=== PATIENT | male | born 1990 | race Caucasian/White ===

== ENCOUNTER 2020-03-07 14:24 | Outpatient (REF) | payer MEDICAID, SELFPAY | END 2020-03-07 14:25 | disposition home or self-care (01) | LOC: HO.LAB 14:24 | PROVIDERS: Visit Provider Internal Medicine | DX: Z20.828 Contact with and (suspected) exposure to other viral communicable diseases (principal) | CPT/HCPCS: C9803; U0003 ==

== ENCOUNTER 2020-03-21 17:54 | Outpatient (REF) | payer MEDICAID, SELFPAY | END 2020-03-21 17:55 | disposition home or self-care (01) | LOC: HO.LAB 17:54 | PROVIDERS: Visit Provider Internal Medicine | DX: Z20.828 Contact with and (suspected) exposure to other viral communicable diseases (principal) | CPT/HCPCS: C9803; U0003 ==

== ENCOUNTER 2020-09-23 10:57 | Outpatient (REF) | payer MEDICAID, SELFPAY ==
[2020-09-23 11:26] LABS: COVID-19 Test Negative (Negative)
== END 2020-09-23 10:58 | disposition home or self-care (01) ==
LOC: HO.LAB 10:57
PROVIDERS: Visit Provider Internal Medicine
DX: Z20.822 Contact with and (suspected) exposure to COVID-19 (principal)
CPT/HCPCS: 36415; 87635; C9803

== ENCOUNTER 2021-02-03 20:06 | Emergency (ER) | payer MEDICAID, SELFPAY ==
[2021-02-03 21:23] LABS: COVID-19 Test Negative (Negative)
[2021-02-03 21:33] VITALS: BP 164/107; PULSE 77; RESP 16; TEMP 36.7; O2SAT 98; BMI 39.5
--- NOTE | 2021-02-03 23:49 | ED_ITS ---
HPI - URI/Sore Throat General Chief Complaint: Upper Respiratory Symptoms Stated Complaint: cough,runny nose, fever Time Seen by Provider: 02/03/21 23:39 Source: patient Mode of arrival: ambulatory Limitations: no limitations History of Present Illness HPI Narrative: Patient presents to ED for cough, runny nose, and fever since last night. Patient is fully vaccinated against COVID. Patient denies any chest pain or shortness of breath. MD elicited complaint: fever, cough and nasal congestion Related Data Previous Rx's Medication Instructions Recorded benzonatate 100 mg capsule 100 mg PO TID PRN 5 Days #15 cap 02/04/21 (Tessalon Perlbijal) Allergies Allergy/AdvReac Type Severity Reaction Status Date / Time penicillin G [PENICILLIN G] Allergy Unknown rash Unverified 01/17/20 16:23 penicillin V Allergy Unknown rash Verified 03/19/13 00:00 Review of Systems Review of Systems: Yes all other systems are reviewed and are negative Constitutional: Constitutional: Reports as per HPI, Reports no additional constitutional complaints, Reports fever(s) and Reports headache(s) Eyes: Eyes: Reports as per HPI and Reports no additional eye complaints ENT: Reports system reviewed and no additional complaints, except as documented, Reports as per HPI and Reports headache(s) Cardiovascular: Cardiovascular: Reports as per HPI, Reports no additional cardiovascular complaints, Denies chest pain and Denies dyspnea Respiratory: Respiratory: Reports as per HPI, Reports no additional respiratory complaints, Reports cough and Denies dyspnea Gastrointestinal: Gastrointestinal: Reports as per HPI and Reports no additional gastrointestinal complaints Musculoskeletal: Musculoskeletal: Reports no additional musculoskeletal complaints and Reports as per HPI Neurologic: Reports system reviewed and no additional complaints, except as d ocumented, Reports as per HPI and Reports headache(s) Psychiatric: Psychiatric: Reports no additional psychiatric complaints and Reports as per HPI [facility] Past Medical History Medical History (Updated 02/04/21 @ 00:02 by Background Dascott) No known health problems Social History Social History Advance Directives: No Advance Directives Information Provided: No Physical Exam Vital Signs: Vital Signs: Last Vital Signs Temp 98.1 F 02/03/21 21:33 Pulse 77 02/03/21 21:33 Resp 16 02/03/21 21:33 BP 164/107 H 02/03/21 21:33 Pulse Ox 98 02/03/21 21:33 Body Mass Index 39.5 Const: General: cooperative, healthy appearing and comfortable Orientation/consciousness: patient oriented x3 HENMT: Head: Yes normal to inspection, Yes No palpable skull fracture present, Yes normocephalic, Yes atraumatic and No abrasion Ears: hearing grossly normal bilaterally, external ears normal, TM's normal bilaterally, EAC's normal, mastoids normal and no periauricular adenopathy Throat: Yes posterior oropharynx normal, Yes tonsils normal and Yes uvula midline Eyes: General: appearance normal, both eyes and all related structures Neck: Neck: Yes normal visual inspection, Yes full ROM, Yes no lymphade nopathy, Yes no meningeal signs, Yes trachea midline, Yes supple and No tender Chest: Chest palpation & inspection: normal inspection of the chest and normal palpation of entire chest wall Resp: Effort & Inspection: normal respiratory effort and able to speak in complete sentences Auscultation: clear to auscultation bilaterally Cardio: Jugular venous distension: no JVD Heart sounds: S1 normal heart sound present and S2 normal heart sound present GI: Inspection: Yes normal to inspection and No abdominal wall ecchymosis Palpation (GI): Soft to palpation, not firm, nontender, no guarding and not rigid : General: No CVA tenderness and Yes no CVA tenderness Back/Spine/Pelvis: Back: no CVA tenderness, No CVA tenderness and No back tenderness Skin: General skin exam: no rashes or lesions noted and elasticity normal Neuro: General: patient oriented x3, gait normal, no meningeal signs and CN's II-XI intact bilaterally Cranial nerves: Yes CN's II-XII intact bilaterally Extrem: General: Yes normal to inspection and Yes full ROM Psych: Appearance: grossly normal, well kempt and not disheveled MDM - URI/Sore Throat Lab Data Labs: Lab Results 02/03/21 Range/Units 20:43 COVID-19 (MARY JO) Negative (Negative) COVID-19 Clin Com See Note Discharge Plan Discharge Clinical Impression: Upper respiratory infection Patient Disposition: Home, Self-Care Instructions: Upper Respiratory Infection (ED) Additional Instructions: Return to the ED for chest pain, shortness of breath, swelling of lower extremities, coughing up blood, weakness, dizziness, or any other concerning symptoms. Prescriptions: New benzonatate [Tessalon Perles] 100 mg capsule 100 mg PO TID PRN (Reason: cough) 5 Days Qty: 15 RF: 0 Stand Alone Forms: Work/School Release Interventions: ED Discharge Assessment Last Done: 02/04/21 00:17 Discharge Date/Time: 02/04/21 00:19 Print Language: Frisian
== END 2021-02-04 00:19 | disposition home or self-care (01) ==
LOC: HO.ED 02-04 00:05
PROVIDERS: Emergency Provider Internal Medicine
DX: J06.9 Acute upper respiratory infection, unspecified (principal); Z20.822 Contact with and (suspected) exposure to COVID-19
CPT/HCPCS: 36415; 87635; 99283

== ENCOUNTER 2021-04-20 08:50 | Emergency (ER) | payer OTHER, SELFPAY ==
[2021-04-20 09:06] VITALS: BP 156/105; PULSE 76; RESP 18; TEMP 36.6; O2SAT 99; BMI 38.4
--- NOTE | 2021-04-20 10:49 | ED.GENADULT ---
HPI - General Adult General Chief complaint: Skin/Abscess/Foreign Body Stated complaint: HAND LACERATION AT WORK Time Seen by Provider: 04/20/21 11:47 Source: patient Mode of arrival: ambulatory Limitations: no limitations History of Present Illness HPI narrative: 30-year-old male with no past medical history presents to the ED with laceration on posterior right thumb by steam box hand at work. Patient states mild bleeding. Complete range of motion of thumb and denies any numbness/tingling. Related Data Previous Rx's Medication Instructions Recorded benzonatate 100 mg capsule 100 mg PO TID PRN 5 Days #15 cap 02/04/21 (Tessalon Perles) clindamycin HCl 300 mg capsule 300 mg PO TID 7 Days #21 cap 04/20/21 Allergies Allergy/AdvReac Type Severity Reaction Status Date / Time penicillin G [PENICILLIN G] Allergy Unknown rash Unverified 01/17/20 16:23 penicillin V Allergy Unknown rash Verified 03/19/13 00:00 Review of Systems Review of Systems: Yes all other systems are reviewed and are negative Constitutional: Constitutional: Reports as per HPI and Reports no additional constitutional complaints Eyes: Eyes: Reports as per HPI and Reports no additional eye complaints Cardiovascular: Cardiovascular: Reports as per HPI and Reports no additional cardiovascular complaints Respiratory: Respiratory: Reports as per HPI and Reports no additional respiratory complaints Gastrointestinal: Gastrointestinal: Reports as per HPI and Reports no additional gastrointestinal complaints Genitourinary: Genitourinary: Reports no additional male genitourinary complaints and Reports as per HPI Musculoskeletal: Musculoskeletal: Reports no additional musculoskeletal complaints and Reports as per HPI Comments: Right thumb laceration Neurologic: Reports system reviewed and no additional complaints, except as documented and Reports as per HPI Psychiatric: Psychiatric: Reports no additional psychiatric complaints and Reports as per HPI Endocrine: Endocrine: Reports no additional endocrine complaints and Reports as per HPI [facility] Past Medical History Medical History (Updated 04/20/21 @ 11:39 by ROSE Garsia) No known health problems Social History Social History Advance Directives: No Advance Directives Information Provided: Yes Physical Exam Vital Signs: Vital Signs: Last Vital Signs Temp 97.8 F 04/20/21 09:06 Pulse 76 04/20/21 09:06 Resp 18 04/20/21 09:06 BP 156/105 H 04/20/21 09:06 Pulse Ox 99 04/20/21 09:06 BMI result Body Mass Index 38.4 Const: General: cooperative, healthy appearing, comfortable, no acute distress, well developed, alert, awake and Physically active Orientation/consciousness: oriented to person, oriented to place, oriented to time and patient oriented x3 HENMT: Head: Yes normal to inspection, Yes No palpable skull fracture present, Yes normocephalic, Yes atraumatic and No abrasion Eyes: General: appearance normal, both eyes and all related structures Neck: Neck: Yes normal visual inspection, Yes full ROM, Yes no lymphadenopathy, Yes no meningeal signs, Yes trachea midline, Yes supple, No anterior neck swelling and No tender Chest: Chest palpation & inspection: normal inspection of the chest and normal palpation of entire chest wall Resp: Effort & Inspection: normal respiratory effort and able to speak in complete sentences Auscultation: clear to auscultation bilaterally Cardio: Jugular venous distension: no JVD Heart sounds: S1 normal heart sound present and S2 normal heart sound present GI: Inspection: Yes normal to inspection and No abdominal wall ecchymosis Palpation (GI): Soft to palpation, not firm, nontender, no guarding and not rigid : General: No CVA tenderness and Yes no CVA tenderness Back/Spine/Pelvis: Back: no CVA tenderness, No CVA tenderness and No back tenderness Skin: General skin exam: no rashes or lesions noted and elasticity normal Neuro: General: oriented to person, oriented to place, oriented to time, patient oriented x3, gait normal, tone normal, moves all extremities, Normal light touch and pain sensation, no meningeal signs, no focal motor deficits, CN's II-XI intact bilaterally and normal sensation to monofilament Extrem: General: Yes normal to inspection and Yes full ROM Hand/finger images: 1. Very superficial thumb laceration negative for active bleeding. Patient has complete range of motion of thumb. Capillary refill is intact. Negative for signs for any nerve damage or tendon injury. Rest of hand normal negative for signs of trauma. Motor/neuro/vascular exam of upper extremity intact Psych: Appearance: grossly normal, well kempt and not disheveled Course Course Course Narrative: Laceration to right hand. Reevaluation(s) Reevaluation #1: No laceration repair indicated. Will repaired with Dermabond. Tdap ordered. Time: 10:56 Reevaluation #2: Dermabone placed on wound. Patient will be discharged with Keflex and follow-up with her connection Time: 11:37 Medical Decision Making MDM Narrative Medical decision making narrative: Laceration Discharge Plan Discharge Clinical Impression: Laceration of thumb Patient Disposition: Home, Self-Care Instructions: Finger Laceration (ED), Skin Adhesive Care (ED), Steristrips (ED) Additional Instructions: Return to the ED immediately for any swelling, redness, pus discharge, foul odor, bluish black discoloration, hotness, coolness, fever, chills, or any other concerning symptoms. Please follow-up with connection. You will be discharged with antibiotics to prevent infection. Laceration should be kept dry for at least the 1st 24 hours. Prescriptions: New clindamycin HCl 300 mg capsule 300 mg PO TID 7 Days Qty: 21 RF: 0 No Action benzonatate [Tessalon Perles] 100 mg capsule 100 mg PO TID PRN (Reason: cough) 5 Days Qty: 15 RF: 0 Referrals: Work [facility] [Outside] - 2 days (Right thumb laceration at work) Interventions: ED Discharge Assessment Last Done: 04/20/21 12:12 Discharge Date/Time: 04/20/21 12:13 Print Language: Jordanian
[2021-04-20] MEDS: Diphth,Pertus(ACell),Tet Adult 0.5 ML SYRINGE IM (12:04)
== END 2021-04-20 12:13 | disposition home or self-care (01) ==
PROVIDERS: Emergency Provider Emergency Medicine
DX: S61.011A Laceration without foreign body of right thumb without damage to nail, initial encounter (principal); W27.8XXA Contact with other nonpowered hand tool, initial encounter; Y93.89 Activity, other specified; Y92.531 Health care provider office as the place of occurrence of the external cause; Y99.0 Civilian activity done for income or pay
CPT/HCPCS: 12001; 90471; 90715; 99283; 99284

== ENCOUNTER 2024-10-09 13:43 | Emergency (ER) | payer SELFPAY ==
--- NOTE | ~2024-10-09 | XR_ITS ---
EXAMINATION: XR LUMBOSACRAL SPINE CLINICAL INFORMATION: low back pain. heard a pop COMPARISON: None available. TECHNIQUE: Three views of the lumbosacral spine. FINDINGS: SI joints are symmetrical and unremarkable. There are 5 nonrib-bearing lumbar segments. T11-12 and T12-L1 demonstrate mild disc space narrowing and small endplate osteophytes. L5-S1 demonstrates minimal grade 1 retrolisthesis. XR/XR lumbar spine 2-3V IMPRESSION: T11-12 and T12-L1 mild degenerative disc disease. Minimal grade 1 retrolisthesis at L5-S1. Electronically signed by: Alexander Nunez MD 10/09/2024 02:20 PM EDT
[2024-10-09 13:55] VITALS: BP 154/97; PULSE 83; RESP 18; TEMP 36.8; O2SAT 97; BMI 40.3
--- NOTE | 2024-10-09 13:56 | ED.GENADULT ---
HPI - General Adult General Chief complaint: Back Pain/Injury Stated complaint: Lower back pain Time Seen by Provider: 10/09/24 13:59 Source: patient Mode of arrival: ambulatory Limitations: no limitations History of Present Illness ED Provider: dana Adkins HPI narrative: 33-year-old male presents to ED for low back pain after bending down at work . Patient was speaking heavy object and felt a pop in his lower back. Patient denies any urinary/bowel incontinence, fever, chills, nausea, vomiting, or any recent IV drug use. Patient denies any abdominal pain, dysuria, hematuria, flank pain, or genitourinary symptoms. Related Data Previous Rx's ?Medication ?Instructions ?Recorded benzonatate 100 mg capsule 100 mg PO TID PRN cough 5 days #15 02/04/21 (Arlette Alston) caps clindamycin HCl 300 mg capsule 300 mg PO TID 7 days #21 caps 04/20/21 cyclobenzaprine 10 mg tablet 10 mg PO TID PRN muscle spasm #15 10/09/24 tabs naproxen 500 mg tablet 500 mg PO BID PRN pain #14 tabs 10/09/24 Allergies Allergy/AdvReac Type Severity Reaction Status Date / Time penicillin G [PENICILLIN G] Allergy Unknown rash Unverified 10/09/24 13:57 penicillin V Allergy Unknown rash Verified 10/09/24 13:57 Review of Systems Review of Systems: Low back pain Yes all other systems are reviewed and are negative [facility] Past Medical History Medical History (Updated 10/09/24 @ 14:53 by ROSE Garsia) No known health problems Social History Social History Advance Directives: No Advance Directives Information Provided: No Physical Exam ED Vital Signs: Vital Signs - 24 hr 10/09/24 13:55 10/09/24 15:08 Temperature 98.2 F 98.2 F Pulse Rate 83 83 Respiratory Rate 18 18 Blood Pressure 154/97 H 154/97 H Pulse Oximetry 97 97 Oxygen Delivery Method Room Air Room Air BMI result Body Mass Index 40.3 Const General: cooperative, healthy appearing, comfortable, no acute distress, well developed, alert, awake and Physically active Orientation/consciousness: patient oriented x3 HENMT Head: Yes normal to inspection, Yes No palpable skull fracture present, Yes normocephalic and Yes atraumatic Eyes General: appearance normal, both eyes and all related structures Neck Neck: Yes normal visual inspection, Yes full ROM, Yes no lymphadenopathy, Yes no meningeal signs, Yes trachea midline, Yes supple, No anterior neck swelling and No tender Chest Chest palpation & inspection: normal inspection of the chest and normal palpation of entire chest wall Resp Effort & Inspection: normal respiratory effort and able to speak in complete sentences Auscultation: clear to auscultation bilaterally Cardio Jugular venous distension: no JVD Heart sounds: S1 normal heart sound present and S2 normal heart sound present GI Inspection: Yes normal to inspection Palpation (GI): Tenderness to palpation present (GI) in the LLQ, no guarding and not rigid General: Yes no CVA tenderness Back/Spine/Pelvis Back: no CVA tenderness and back tenderness (lumbar) Skin General skin exam: no rashes or lesions noted, elasticity normal and turgor normal Neuro General: patient oriented x3, gait normal, tone normal, moves all extremities, Normal light touch and pain sensation, no meningeal signs, no focal motor deficits, CN's II-XI intact bilaterally and normal sensation to monofilament Extrem General: Yes normal to inspection, Yes full ROM and Yes capillary refill normal Psych Appearance: grossly normal, well kempt and not disheveled Course Course Course Narrative: RME: 33 year male presents to ED for low back pain after heavy lifting at work. Patient denies any abdominal pain nausea vomiting, dysuria, hematuria flank pain fever or chills. X-ray ordered. Medical Decision Making Medical Decision Making MDM Narrative: 33-year-old male presents to ED for low back pain worse on movement after lifting heavy object at work and hearing a pop. X-ray does show arthritis no fracture. Not suspecting epidural abscess, cauda equinus syndrome, osteomyelitis, or any other life-threatening etiology. Patient informed to follow up with work clinic. Patient will be discharged with NSAIDs and muscle relaxer. Patient explained worrisome signs and informed her to the ED immediately. Differential Diagnosis Differential Diagnoses: The differential diagnosis associated with the presentation includes (Fracture, back sprain, dislocation) Admission/Observation Consideration of admission/observation: Escalation of care including admission/observation considered Independent Interpretation I performed an independent interpretation of an: Plain X-Ray Radiology Impression Discussion of test interpretation with radiology: I have reviewed the radiologist's reading. Independent Historian Clinical information obtained from an independent historian. History obtained from or confirmed by: Other (patient) Prescription Management I considered prescription management with: Pain Medication Discharge Plan Discharge Clinical Impression: Lumbar radiculopathy, Degenerative disc disease, thoracic Patient Disposition: Home, Self-Care Instructions: Lumbar Radiculopathy (ED), Degenerative Disc Disease (ED) Additional Instructions: Recommend follow-up with work connection. Return to the ED for worsening back pain, abdominal pain, nausea, vomiting, flank pain, hematuria, dysuria, inability to walk, numbness/tingling of lower extremities, or any other concerning symptoms. EXAMINATION: XR LUMBOSACRAL SPINE CLINICAL INFORMATION: low back pain. heard a pop COMPARISON: None available. TECHNIQUE: Three views of the lumbosacral spine. FINDINGS: SI joints are symmetrical and unremarkable. There are 5 nonrib-bearing lumbar segments. T11-12 and T12-L1 demonstrate mild disc space narrowing and small endplate osteophytes. L5-S1 demonstrates minimal grade 1 retrolisthesis. XR/XR lumbar spine 2-3V IMPRESSION: T11-12 and T12-L1 mild degenerative disc disease. Minimal grade 1 retrolisthesis at L5-S1. Electronically signed by: Alexander Nunez MD 10/09/2024 02:20 PM EDT RP Dictated By: Alexander Nunez MD Signed By: <Electronically signed by Alexander Nunez MD in OV> 10/09/24 1420 Prescriptions: New naproxen 500 mg tablet 500 mg PO BID PRN (Reason: pain) Qty: 14 0RF cyclobenzaprine 10 mg tablet 10 mg PO TID PRN (Reason: muscle spasm) Qty: 15 0RF Rx Instructions: side effect is drowsiness. Do not take at work or while driving. No Action benzonatate [Tessalon Perles] 100 mg capsule 100 mg PO TID PRN (Reason: cough) 5 Days Qty: 15 0RF clindamycin HCl 300 mg capsule 300 mg PO TID 7 Days Qty: 21 0RF Referrals: [facility] [Outside] (Pulled back at work) Stand Alone Forms: Work/School Release Interventions: ED Discharge Assessment Last Done: 10/09/24 15:08 Discharge Date/Time: 10/09/24 15:09 Print Language: Lithuanian
[2024-10-09 15:08] VITALS: BP 154/97; PULSE 83; RESP 18; TEMP 36.8; O2SAT 97
--- OUTSIDE RECORDS SUMMARY | 2024-10-09 18:04 | XMS_ITS | Clinical Summary ---
Author Organization [email or web address] Address [address] [place] [address] Care Team Providers Care Law Firm Receptionist Name Role Phone Unavailable Primary Care Provider Unavailabl e Encounters Date Type Department Care Team Description 07/13/2024 Population Health Risk Score [facility] (C3) Department [address] [id number] Provider, Population Health Generic from Last 3 Months Social History Tobacco Use Types Packs/Day Years Used Date Smoking Tobacco: Never Assessed Sex and Gender Information Value Date Recorded Sex Assigned at Not on file Legal Sex Male 1:42 PM EST Gender Identity Not on file Sexual Orientation Not on file Plan of Treatment Health Maintenance Due Date Last Done Comments Depression Screening 1992 HIV Screening 1992 SDOH Screening 1992 Disability Screening 1992 Alcohol/Substance Use Screening 2004 Tobacco Screening 2004 Family Planning (PISQ) 10/26/2007 Hepatitis C Screening 2010 DTaP/Tdap/Td Vaccines (1 - Tdap) 10/26/2011 Hepatitis B Vaccines (1 of 3 - 19+ 3-dose series) 10/26/2011 COVID-19 Vaccine ( - 2023-2 5 season) 2024 Influenza Vaccine (Season Ended) 2024 Zoster Vaccines (1 of 2) 2042 RSV Patients and Pa tients Aged 60 years or older (1 - 1-dose 75+ series) 10/26/2067 HIB Vaccines Aged Out No longer eligi ble based on patient's age to complete this topic HPV Vaccines Aged Out No longer eligi ble based on patient's age to complete this topic Hepatitis A Vaccines Aged Out No long er eligible based on patient's age to complete this topic IPV Vaccines Aged Out No longer eligi ble based on patient's age to complete this topic Meningococcal B Vaccine Aged Out No l onger eligible based on patient's age to complete this topic Meningococcal Vaccine Aged Out No jd moi eligible based on patient's age to complete this topic Pneumococcal Vaccine: Pediat rics (0 to 5 Years) and At-Risk Patients (6 to 49) Years) Aged Out No longer eligible b ased on patient's age to complete this topic RSV under 20 months Aged Out No longe r eligible based on patient's age to complete this topic Rotavirus Vaccines Aged Out No longer eligible based on patient's age to complete this topic
== END 2024-10-09 15:09 | disposition home or self-care (01) ==
PROVIDERS: Emergency Provider Emergency Medicine Emergency Medical Services
DX: M54.16 Radiculopathy, lumbar region (principal); M51.34 Other intervertebral disc degeneration, thoracic region
CPT/HCPCS: 72100; 99282; 99283

== ENCOUNTER → 2024-10-09 13:56 | Outpatient (BNV) | payer MEDICAID, SELFPAY | PROVIDERS: Emergency Provider Emergency Medicine Emergency Medical Services; Visit Provider Radiology Diagnostic Radiology | DX: M54.50 Low back pain, unspecified (principal) | CPT/HCPCS: 72100 ==